=== PATIENT | male | born 1955 | race Caucasian/White ===

== ENCOUNTER → 2019-05-07 12:40 | Outpatient (CLI) | payer OTHER, SELFPAY ==
--- NOTE | 2019-05-07 12:40 | COLBX_PTH ---
PATIENT: MEGHANA GOMEZ LOC: [facility] U#:[id number] AGE/SX: 69/M ROOM: RE05/07/[address]: Dr. Simba Rey MD : [id number] BED: DIS: SPEC #: [id number] RECD: 05/07/19 14:55 STATUS: ZENOBIA VIKRAM #: [id number] MIKEY: 05/07/19 12:[address]: Simba Rey DEPT: SURGICAL PATHOLOGY RECD BY: Armaan Ochoa ENTERED: 05/08/19 09:21 SP TYPE: COLON BX OTHR DR: JO[facility]PH Tissues: COLON BIOPSY Procedures: Surgery Specimen Level IV HEADER OPERATION: Colonoscopy with polypectomy PRE-OP DIAGNOSIS: History polyps TISSUE SUBMITTED: Right colon polyps, rule out adenoma MICROSCOPIC DIAGNOSIS Right colon polyps, biopsy: Fragments of hyperplastic polyp. AM:connie 05/09/19 MICROSCOPIC DESCRIPTION Slides are reviewed. GROSS DESCRIPTION Received in fixative is one container labeled with the patient's name and designated right colon polyps. The specimen consists of two irregular fragments of light acosta soft tissue that in aggregate measure 0.6 x 0.3 x 0.1 cm. The specimen is totally submitted in one cassette. / SJ:connie 05/08/19 TC:5 CPT: 87078
== END ==
PROVIDERS: Referring Provider Internal Medicine Gastroenterology; Visit Provider Internal Medicine Gastroenterology
DX: Z86.010 Personal history of colon polyps (principal)
CPT/HCPCS: 88305